=== PATIENT | male | born 1950 | race Caucasian/White ===

== ENCOUNTER → 2016-07-11 | Outpatient (CLI) | payer MEDICARE, OTHER ==
[~2016-07-11] MED LIST: DOCUSATE SODIU250 MG PO; EFFER-K 20 MEQ20 MEQ PO; ELIQUIS5 MG PO; FINASTERIDE5 MG PO; FLOMAX0.4 MG PO; FLONASE 0.05% N16 GM; LASIX80 MG PO; LEVOTHYROXINE50 MCG PO; METOPROLOL SUCC25 MG PO; MIRALAX17 GM PO; NEURONTIN 300300 MG PO; OMEPRAZOLE20 MG PO; OXYCODONE-ACET1 EAC1 PO; PAXIL10 MG PO; PERCOCET 7.5-31 EACH PO; TOPAMAX50 MG PO; TYLENOL 500 MG500 MG PO; VITAMIN D50000 UNIT PO
[2016-07-11 11:17] LABS: HEMOGLOBIN 12.3 gm/dl (14.0-17.5); RED BLOOD COUNT 4.7 M/UL (4.20-5.50); WHITE BLOOD COUNT 10.8 K/UL (4.5-11.0)
== END ==
LOC: OPSV2 10:28
PROVIDERS: Orthopaedic Surgery
DX: Z01.812 Encounter for preprocedural laboratory examination (principal); G56.01 Carpal tunnel syndrome, right upper limb; Z88.8 Allergy status to other drugs, medicaments and biological substances
CPT/HCPCS: 36415; 80048; 85027; 93005

== ENCOUNTER → 2016-07-15 | Day surgery (SDC) | payer MEDICARE, OTHER ==
[~2016-07-15] VITALS: Ht 172.7 cm; Wt 168.7 kg
[2016-07-15 07:17] LABS: BUN/CREATININE RATIO 23 (0-10)
== END | disposition home or self-care (01) ==
LOC: OR 05:58
PROVIDERS: Orthopaedic Surgery
PROC: 01N50ZZ Release Median Nerve, Open Approach (ICD-10-PCS; principal; 2016-07-15 08:15)
DX: G56.01 Carpal tunnel syndrome, right upper limb (principal); I10 Essential (primary) hypertension; K21.9 Gastro-esophageal reflux disease without esophagitis; E07.9 Disorder of thyroid, unspecified; E11.9 Type 2 diabetes mellitus without complications; E55.9 Vitamin D deficiency, unspecified; M19.90 Unspecified osteoarthritis, unspecified site; E66.01 Morbid (severe) obesity due to excess calories; G89.29 Other chronic pain; Z87.19 Personal history of other diseases of the digestive system; Z96.653 Presence of artificial knee joint, bilateral; Z79.899 Other long term (current) drug therapy; Z79.52 Long term (current) use of systemic steroids; Z79.01 Long term (current) use of anticoagulants; Z79.891 Long term (current) use of opiate analgesic
CPT/HCPCS: 36415; 80048; J0690; J2250; J3010; J7120